=== PATIENT | female | born 1995 | race Caucasian/White ===

== ENCOUNTER 2016-05-04 13:55 | Emergency (ER) | payer OTHER ==
[2016-05-04 14:21] VITALS: BP 107/68; PULSE 96; TEMP 98; BMI 18.0
[2016-05-04 15:06] LABS: URINE APPEARANCE SLCLOUDY; URINE BILIRUBIN NEGATIVE (NEGATIVE); URINE BLOOD NEGATIVE (NEGATIVE); URINE COLOR LTYELLOW; URINE GLUCOSE (UA) NEGATIVE (NEGATIVE); URINE KETONE NEGATIVE (NEGATIVE); URINE NITRITE NEGATIVE (NEGATIVE); URINE PROTEIN NEGATIVE (NEGATIVE); URINE UROBILINOGEN NEGATIVE E.U./dl (0.2-1.0)
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
[2016-05-04 15:15] LABS: URINE LEUK ESTERASE TRACE (NEGATIVE)
[2016-05-04 15:21] LABS: URINE BACTERIA RARE /hpf (NONE SEEN); URINE MUCUS RARE; URINE RBC 1 /hpf (0-3); URINE WBC 3 /hpf (3-5)
== END 2016-05-04 15:32 | disposition home or self-care (01) ==
LOC: JERFT 13:55
DX: J06.9 Acute upper respiratory infection, unspecified (principal); F17.210 Nicotine dependence, cigarettes, uncomplicated
CPT/HCPCS: 81003; 81015; 84703; 87070; 87430; 99281-25

== ENCOUNTER 2016-09-21 10:24 | Emergency (ER) | payer OTHER ==
[2016-09-21 10:43] VITALS: BP 103/70; PULSE 116; TEMP 99.2; BMI 19.2
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
[2016-09-21 12:41] LABS: URINE APPEARANCE CLEAR; URINE BILIRUBIN NEGATIVE (NEGATIVE); URINE BLOOD 1+ (NEGATIVE); URINE COLOR LTYELLOW; URINE GLUCOSE (UA) NEGATIVE (NEGATIVE); URINE KETONE 1+ (NEGATIVE); URINE LEUK ESTERASE TRACE (NEGATIVE); URINE NITRITE NEGATIVE (NEGATIVE); URINE PROTEIN NEGATIVE (NEGATIVE); URINE UROBILINOGEN NEGATIVE mg/dL (0.2-1.0)
[2016-09-21 12:47] LABS: URINE MUCUS RARE; URINE RBC 1 /hpf (0-3); URINE WBC 8 /hpf (3-5)
[2016-09-21 12:53] LABS: URINE MARIJUANA THC POSITIVE ng/ml (CUTOFF=50)
== END 2016-09-21 12:53 | disposition home or self-care (01) ==
LOC: JERFT 10:24 → JER 10:24
DX: S39.012A Strain of muscle, fascia and tendon of lower back, initial encounter (principal); X58.XXXA Exposure to other specified factors, initial encounter; Y93.9 Activity, unspecified; Y92.9 Unspecified place or not applicable; F17.210 Nicotine dependence, cigarettes, uncomplicated
CPT/HCPCS: 36415; 80307; 81003; 81015; 84703; 87491; 87591; 99282-25

== ENCOUNTER 2017-03-05 08:31 | Emergency (ER) | payer OTHER ==
[2017-03-05 08:35] VITALS: TEMP 98.2; BMI 18.8
--- NOTE | 2017-03-05 08:53 | PDOC ---
History of Present Illness - General Chief Complaint: Urinary Problem Stated Complaint: POSSIBLE UTI Time Seen by Provider: 03/05/17 08:52 - History of Present Illness Initial Comments: 03/05/17 09:12 Ms. Grene is a 21 yo female w/ pmh of asthma and scoliosis who presents complaining of a 2 week history of dysuria. She reports that she has had UTI's in the past and that this feels identical. Additionally, Ms. Green reports she has had cough productive of yellow phlegm for the past week and pain with deep inspiration - her boyfriend is also sick with similar symptoms. Ms. 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 The patient denies chest pain, shortness of breath, headache and dizziness. Denies fever, chills, nausea, vomit, diarrhea and constipation. Denies frequency , urgency and hematuria. Allergies: NKDA Social: Daily marijuana use. Smokes 1 pack of cigarettes every 3 days. Past History - Past Medical History Allergies/Adverse Reactions: Allergies Allergy/AdvReac Type Severity Reaction Status Date / Time No Known Allergies Allergy Verified 03/05/17 08:35 Home Medications: Ambulatory Orders Cephalexin [Keflex] 500 mg PO BID #20 capsule 03/05/17 Asthma: Yes COPD: No Other medical history: scoliosis - Suicide/Smoking/Psychosocial Hx Smoking History: Current every day smoker Number of Cigarettes Smoked Daily: 10 Information on smoking cessation initiated: No 'Breaking Loose' booklet given: 09/21/16 Hx Alcohol Use: Yes (SOCIAL) Drug/Substance Use Hx: No Substance Use Type: None Review of Systems - Review of Systems Comments:: 03/05/17 09:24 GENERAL/CONSTITUTIONAL: No fever or chills. No weakness. HEAD, EYES, EARS, NOSE AND THROAT: No change in vision. No ear pain or discharge. No sore throat. CARDIOVASCULAR: No chest pain or shortness of breath RESPIRATORY: +Hacking cough productive of yellow sputum for 1 week. GASTROINTESTINAL: No nausea, vomiting, diarrhea or constipation. GENITOURINARY: +Dysuria for 2 weeks. No frequency. MUSCULOSKELETAL: +Back pain as described SKIN: No rash NEUROLOGIC: No headache, vertigo, loss of consciousness, or change in strength/ sensation. ENDOCRINE: No increased thirst. No abnormal weight change HEMATOLOGIC/LYMPHATIC: No anemia, easy bleeding, or history of blood clots. ALLERGIC/IMMUNOLOGIC: No hives or skin allergy. *Physical Exam - Vital Signs Last Vital Signs Temp Pulse Resp BP Pulse Ox 98.2 F 98 H 18 119/78 100 03/05/17 08:32 03/05/17 08:32 03/05/17 08:32 03/05/17 08:32 03/05/17 08:32 - Physical Exam Comments: 03/05/17 09:26 GENERAL: Awake, alert, and fully oriented, in no acute distress HEAD: No signs of trauma, normocephalic, atraumatic EYES: PERRLA, EOMI, sclera anicteric, conjunctiva clear ENT: Auricles normal inspection, hearing grossly normal, nares patent, oropharynx clear without exudates. Moist mucosa NECK: Normal ROM, supple, no lymphadenopathy, JVD, or masses LUNGS: +Wet cough appreciated although lungs sound clear. HEART: Regular rate and rhythm, normal S1 and S2, no murmurs, rubs or gallops, peripheral pulses normal and equal bilaterally. ABDOMEN: Soft, nontender, normoactive bowel sounds. No guarding, no rebound. No masses EXTREMITIES: +Point tenderness to R lumbar spine NEUROLOGICAL: Cranial nerves II through XII grossly intact. Normal speech, normal gait, no focal sensorimotor deficits SKIN: Warm, Dry, normal turgor, no rashes or lesions noted. ED Treatment Course - LABORATORY CBC & Chemistry Diagram: 03/05/17 10:15 03/05/17 10:15 Medical Decision Making - Medical Decision Making 03/05/17 11:34 Ms. Green is a 21 yo female w/ pmh of asthma and scoliosis who presents w/ symptoms concerning for UTI, back strain, and viral URI. Patient positive for UTI via UA, keflex given in ED and Rx sent. Patient reports generalized resolution of back pain after toradol - patient advised to get back brace for further lifting at work. CXR non-concerning, suspect viral illness only - advised patient to follow-up if continues and to quit smoking at least until symptoms resolve. Patient verbalized understanding and will comply with recommendations. Will also provide follow-up information for spine. *DC/Admit/Observation/Transfer Diagnosis at time of Disposition: UTI (urinary tract infection) Qualifiers: Urinary tract infection type: site unspecified Hematuria presence: with hematuria Qualified Code(s): N39.0 - Urinary tract infection, site not specified ; R31.9 - Hematuria, unspecified; R31.9 - Hematuria, unspecified - Discharge Dispostion Disposition: HOME - Prescriptions Prescriptions: Cephalexin [Keflex] 500 mg PO BID #20 capsule - Referrals Referrals: Clarice Clemons MD [Primary Care Provider] - Zach Cartagena MD [Staff Physician] - - Patient Instructions Printed Discharge Instructions: DI for Urinary Tract Infection (UTI) Additional Instructions: You were evaluated today in the emergency room for UTI, back strain, and cough. A prescription has been sent to your pharmacy for your UTI. Please take all medications even if you start to feel better. Follow-up with provided spine doctor for further back pain analysis and take over the counter medications for pain relief in the mean time as needed. Use a back brace for any lifting. Refrain from smoking as much as possible at least until cough resolves. Return to ER if any increase in pain, lasting cough, fever, altered mental status, or any other concerning symptoms. - Post Discharge Activity Forms/Work/School Notes: Back to Work
[2017-03-05] MEDS ORDERED: KETOROLAC TROMETHAMINE 15 MG/ML VIAL IVPUSH ONE (09:20)
--- NOTE | 2017-03-05 09:43 | PDOC ---
Attending Attestation - Resident Resident Name: Richard Stevenson - ED Attending Attestation I have performed the following: I have examined & evaluated the patient, The case was reviewed & discussed with the resident, I agree w/resident's findings & plan, Exceptions are as noted - HPI HPI: 03/05/17 09:36 21 F with h/o asthma and scoliosis presenting to ER with 3 days of dysuria. Pt states that she has had UTIs in the past (gets them every couple months), and this feels similar. She denies F/C. States that her urine was cloudy today. Denies flank pain. Pt also reports some nasal congestion and cough for the past week. Endorses chest pain associated with coughing. Pt denies SOB. Denies leg swelling. Denies recent travel/immobilization. No h/o DVT/PE. Not on OCPs. - Physicial Exam PE: 03/05/17 09:38 "GENERAL: Awake, alert, and fully oriented, in no acute distress HEAD: No signs of trauma EYES: PERRLA, EOMI, sclera anicteric, conjunctiva clear ENT: Auricles normal inspection, hearing grossly normal, nares patent, oropharynx clear without exudates. Moist mucosa NECK: Nontender, no stepoffs, Normal ROM, supple, no lymphadenopathy, JVD, or masses LUNGS: Breath sounds equal, clear to auscultation bilaterally. No wheezes, and no crackles HEART: Regular rate and rhythm, normal S1 and S2, no murmurs, rubs or gallops ABDOMEN: Soft, nontender, normoactive bowel sounds. No guarding, no rebound. No masses, No CVAT EXTREMITIES: Normal range of motion, no edema. No clubbing or cyanosis. No cords, erythema, or tenderness NEUROLOGICAL: Cranial nerves II through XII intact. 5/5 strength and sensation in all extremities, Normal speech, normal gait SKIN: Warm, Dry, normal turgor, no rashes or lesions noted. " - Medical Decision Making 03/05/17 09:38 21 F with dysuria and cough. Likely UTI. Cough likely viral URI but will r/o PNA with CXR. Pt's chest pain is likely cough-related. Pt with PERC score 0. - Labs, UA, UCx, UPT - CXR 03/05/17 11:00 UA consistent with UTI. Pt started on keflex. I discussed the physical exam findings, ancillary test results and final diagnoses with the patient. I answered all of the patient's questions. The patient was satisfied with the care received and felt comfortable with the discharge plan and treatment plan. The patient agrees to follow up with the primary care physician within 24-72 hours.
[2017-03-05] MEDS ORDERED: KETOROLAC TROMETHAMINE 15 MG/ML VIAL ONE (09:59)
[2017-03-05] MEDS ORDERED: SODIUM CHLORIDE 1,000 ML IV STA (10:06)
[2017-03-05 10:43] LABS: BASO % 0.4 % (0-2.0); HEMATOCRIT 42.2 % (32.4-45.2); LYMPH % 36.2 % (8-40); MCH 28.7 pg (25.7-33.7); MCHC 33.3 g/dl (32.0-36.0); MEAN CELL VOLUME 86.3 fl (80-96); MEAN PLT VOLUME 8.9 fl (7.5-11.1); MONO % 8.9 % (3.8-10.2); NEUT % 51.5 % (42.8-82.8); PLATELET COUNT 229 K/MM3 (134-434); RBC 4.89 M/mm3 (3.60-5.2); RDW 12.9 % (11.6-15.6); WHITE BLOOD COUNT 6.9 K/mm3 (4.0-10.0)
[2017-03-05 10:44] LABS: URINE APPEARANCE TURBID; URINE BILIRUBIN NEGATIVE (NEGATIVE); URINE BLOOD 1+ (NEGATIVE); URINE COLOR DKYELLOW; URINE GLUCOSE (UA) NEGATIVE (NEGATIVE); URINE KETONE NEGATIVE (NEGATIVE); URINE NITRITE NEGATIVE (NEGATIVE); URINE UROBILINOGEN NEGATIVE mg/dL (0.2-1.0)
[2017-03-05 10:51] LABS: URINE LEUK ESTERASE 3+ (NEGATIVE); URINE PROTEIN 1+ (NEGATIVE)
[2017-03-05 10:53] LABS: EPI CELLS RARE /HPF (FEW)
[2017-03-05 11:00] LABS: ALBUMIN 4.1 g/dl (3.4-5.0); ALK PHOS 80 U/L (45-117); ANION GAP 7 (8-16); BILIRUBIN,TOTAL 0.3 mg/dL (0.2-1.0); BLOOD UREA NITROGEN 9 mg/dL (7-18); CALCIUM 8.9 mg/dL (8.5-10.1); CHLORIDE 103 mmol/L (98-107); CO2 29 mmol/L (21-32); CREATININE 0.8 mg/dL (0.55-1.02); GLUCOSE,RANDOM 95 mg/dL (74-106); POTASSIUM 3.9 mmol/L (3.5-5.1); SGOT/AST 13 U/L (15-37); SGPT/ALT 11 U/L (12-78); SODIUM 139 mmol/L (136-145); TOT PROT 7.7 g/dl (6.4-8.2)
[2017-03-05] MEDS ORDERED: CEPHALEXIN MONOHYDRATE 500 MG CAPSULE (UD) PO ONE (11:27)
[2017-03-05 12:12] VITALS: BP 114/55; PULSE 61
== END 2017-03-05 12:12 | disposition home or self-care (01) ==
LOC: JER 08:31
PROC: 3E0333Z Introduction of Anti-inflammatory into Peripheral Vein, Percutaneous Approach (ICD-10-PCS; principal; 2017-03-05)
PROC: 3E0337Z Introduction of Electrolytic and Water Balance Substance into Peripheral Vein, Percutaneous Approach (ICD-10-PCS; 2017-03-05)
DX: N39.0 Urinary tract infection, site not specified (principal); N31.9 Neuromuscular dysfunction of bladder, unspecified
CPT/HCPCS: 36415; 71046-TC; 80053; 81003; 81015; 84703; 85025; 87086; 96361; 96374; 99283-25

== ENCOUNTER 2017-05-23 17:37 | Emergency (ER) | payer OTHER ==
[2017-05-23 17:59] VITALS: BP 112/57; PULSE 89; TEMP 98.1
--- NOTE | 2017-05-23 18:03 | PDOC ---
Rapid Medical Evaluation Time Seen by Provider: 05/23/17 17:57 Medical Evaluation: Allergies Allergy/AdvReac Type Severity Reaction Status Date / Time No Known Allergies Allergy Verified 05/23/17 17:56 05/23/17 17:57 Pt c/o: itchy rash to left neck without pain or improvment using neosporin. Pt denies eczema or skin d/o Pt on brief exam: erythemaotus patchy areas to neck and left upper chest Pt ordered for: none Pt to proceed to the ED Discharge Disposition - Diagnosis Rash - Referrals - Patient Instructions - Post Discharge Activity
--- NOTE | 2017-05-23 18:58 | PDOC ---
History of Present Illness - General Chief Complaint: Rash Stated Complaint: RASH Time Seen by Provider: 05/23/17 17:57 History Source: Patient - History of Present Illness Timing/Duration: reports: other Location: reports: extremities, other (neck), torso Past History - Past Medical History Allergies/Adverse Reactions: Allergies Allergy/AdvReac Type Severity Reaction Status Date / Time No Known Allergies Allergy Verified 05/23/17 17:56 Home Medications: Ambulatory Orders Loratadine [Claritin] 10 mg PO DAILY #10 tablet 05/23/17 Asthma: Yes COPD: No - Reproductive History (#): 0 Para: 0 - Suicide/Smoking/Psychosocial Hx Smoking History: Current every day smoker Have you smoked in the past 12 months: Yes Number of Cigarettes Smoked Daily: 7 Information on smoking cessation initiated: No 'Breaking Loose' booklet given: 09/21/16 Hx Alcohol Use: Yes (SOCIAL) Drug/Substance Use Hx: No Substance Use Type: None Review of Systems - Review of Systems Constitutional: No: Fever Respiratory: No: Stridor Integumentary: Yes: Pruritus, Rash *Physical Exam - Vital Signs Last Vital Signs Temp Pulse Resp BP Pulse Ox 98.1 F 89 16 112/57 99 05/23/17 17:56 05/23/17 17:56 05/23/17 17:56 05/23/17 17:56 05/23/17 17:56 - Physical Exam General Appearance: Yes: Appropriately Dressed. No: Apparent Distress HEENT: positive: Normal Voice Neck: positive: Supple Respiratory/Chest: positive: Lungs Clear, Normal Breath Sounds. negative: Respiratory Distress, Stridor Cardiovascular: positive: Regular Rate, S1, S2 Integumentary: positive: Rash (hives to neck, back and upper extremities) Neurologic: positive: Fully Oriented, Alert, Normal Mood/Affect Medical Decision Making - Medical Decision Making 05/23/17 18:55 21-year-old female, no significant history, and no food or drug allergies, here with pruritic rash. Patient complaining of rash that started to right side of neck 1and 1/2 weeks ago and has since spread to torso and upper extremities. Denies shortness of breath, tongue swelling or voice changes. Using calamine and Neosporin with no relief. No history of similar episode. No history of anaphylaxis. Denies any obvious inciting agents. Well-appearing and stable with what appears to be hives to neck, back and upper extremities. DC with antihistamine and derm follow-up *DC/Admit/Observation/Transfer Diagnosis at time of Disposition: Hives - Discharge Dispostion Disposition: HOME Condition at time of disposition: Good - Prescriptions Prescriptions: Loratadine [Claritin] 10 mg PO DAILY #10 tablet - Referrals Referrals: Clarice Clemons MD [Primary Care Provider] - Jessica Conklin MD [Staff Physician] - - Patient Instructions Printed Discharge Instructions: Hives Additional Instructions: It appears that you have hives which is usually an allergic rash. Take Claritin as needed for itching. Please follow-up with Dr. Conklin of dermatology at this point - Post Discharge Activity
== END 2017-05-23 18:59 | disposition home or self-care (01) ==
LOC: JERFT 17:37
DX: L50.0 Allergic urticaria (principal); F17.210 Nicotine dependence, cigarettes, uncomplicated
CPT/HCPCS: 99281-25

== ENCOUNTER 2017-06-25 18:01 | Emergency (ER) | payer OTHER | END 2017-06-25 19:37 | disposition home or self-care (01) | LOC: JERFT 18:01 | CPT/HCPCS: 81003; 81015; 84703; 87086; 99281-25 ==

== ENCOUNTER 2017-07-27 00:39 | Emergency (ER) | payer OTHER ==
[2017-07-27 01:51] VITALS: BP 129/67; PULSE 68; TEMP 98.1; BMI 19.7
--- NOTE | 2017-07-27 02:29 | PDOC ---
History of Present Illness - General Chief Complaint: Vaginal Sxs Stated Complaint: URINARY PROBLEM Time Seen by Provider: 07/27/17 02:16 History Source: Patient - History of Present Illness Initial Comments: 07/27/17 21-year-old female currently on MetroGel for bacterial vaginosis reports that she's been having vaginal itching and cottage- cheese like white vaginal discharge. Past History - Past Medical History Allergies/Adverse Reactions: Allergies Allergy/AdvReac Type Severity Reaction Status Date / Time No Known Allergies Allergy Verified 07/27/17 01:51 Home Medications: Ambulatory Orders Nitrofurantoin Monohyd/M-Cryst [Macrobid -] 100 mg PO BID #14 capsule 06/25/17 Fluconazole 150 mg PO ONCE #1 tablet 07/27/17 Saccharomyces Boulardii [Florastor] 250 mg PO BID #14 capsule 07/27/17 Asthma: Yes COPD: No DVT: No - Reproductive History Is Patient Now?: No (Pt states that her menses is late) (#): 0 Para: 0 - Immunization History Immunization Up to Date: Yes - Suicide/Smoking/Psychosocial Hx Smoking History: Current some day smoker Have you smoked in the past 12 months: Yes Number of Cigarettes Smoked Daily: 7 Information on smoking cessation initiated: No 'Breaking Loose' booklet given: 09/21/16 Hx Alcohol Use: No Drug/Substance Use Hx: No Substance Use Type: None *Physical Exam - Vital Signs Last Vital Signs Temp Pulse Resp BP Pulse Ox 98.1 F 68 18 129/67 99 07/27/17 01:49 07/27/17 01:49 07/27/17 01:49 07/27/17 01:49 07/27/17 01:49 - Physical Exam General Appearance: Yes: Appropriately Dressed Female Pelvic Exam: positive: normal external exam, cervical os closed, other ( copious white vaginal discharge) Gastrointestinal/Abdominal: positive: Normal Bowel Sounds Extremity: positive: Normal Capillary Refill, Normal Inspection, Normal Range of Motion Progress Note - Progress Note Progress Note: A: vaginal yeast infection P: fluconazole *DC/Admit/Observation/Transfer Diagnosis at time of Disposition: Yeast infection of the vagina - Discharge Dispostion Disposition: HOME Condition at time of disposition: Improved - Prescriptions Prescriptions: Fluconazole 150 mg PO ONCE #1 tablet Saccharomyces Boulardii [Florastor] 250 mg PO BID #14 capsule - Referrals Referrals: Shadia Rosales MD [Primary Care Provider] - - Patient Instructions Printed Discharge Instructions: DI for Vaginal Yeast Infection Additional Instructions: use the second dose in 72 hours. - Post Discharge Activity Forms/Work/School Notes: Back to Work
[2017-07-27 03:22] LABS: URINE APPEARANCE CLEAR; URINE BILIRUBIN NEGATIVE (<2.0 mg/dL); URINE COLOR YELLOW; URINE GLUCOSE (UA) NEGATIVE (NEGATIVE); URINE KETONE NEGATIVE (NEGATIVE); URINE LEUK ESTERASE NEGATIVE (NEGATIVE); URINE NITRITE NEGATIVE (NEGATIVE); URINE PROTEIN NEGATIVE (NEGATIVE)
[2017-07-27 03:47] LABS: HCG,QUALITATIVE URINE NEGATIVE
[2017-07-27] MEDS ORDERED: FLUCONAZOLE 50 MG TABLET PO ONE (03:54)
== END 2017-07-27 04:09 | disposition home or self-care (01) ==
LOC: JER 00:39
DX: B37.3 Candidiasis of vulva and vagina (principal)
CPT/HCPCS: 81003; 84703; 99281-25

== ENCOUNTER 2017-11-07 19:04 | Emergency (ER) | payer OTHER ==
[2017-11-07 19:48] VITALS: BP 114/62; PULSE 81; TEMP 98; BMI 19.7
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
== END 2017-11-07 20:37 | disposition home or self-care (01) ==
LOC: JERFT 19:04
DX: S39.012A Strain of muscle, fascia and tendon of lower back, initial encounter (principal); S60.211A Contusion of right wrist, initial encounter; S80.211A Abrasion, right knee, initial encounter; Y04.2XXA Assault by strike against or bumped into by another person, initial encounter; Y93.89 Activity, other specified; Y92.89 Other specified places as the place of occurrence of the external cause; Y99.8 Other external cause status; Y07.9 Unspecified perpetrator of maltreatment and neglect
CPT/HCPCS: 99281-25

== ENCOUNTER 2017-12-02 14:52 | Emergency (ER) | payer OTHER ==
[2017-12-02 14:59] VITALS: BP 117/70; PULSE 95; TEMP 99.1; BMI 18.8
[2017-12-02] MEDS ORDERED: KETOROLAC TROMETHAMINE 60 MG/2 ML VIAL IM ONE (15:14)
--- NOTE | 2017-12-02 15:18 | PDOC ---
History of Present Illness - General Chief Complaint: Toothache Stated Complaint: TOOTHACHE Time Seen by Provider: 12/02/17 15:09 - History of Present Illness Initial Comments: 12/02/17 15:14 22-year-old female without comorbidities presents for evaluation of postoperative pain after having 4 wisdom teeth extracted yesterday. She was given a prescription for 6 Tylenol 3 she's taken to without relief. She reports for to the ER for further evaluation and treatment. Past History - Past Medical History Allergies/Adverse Reactions: Allergies Allergy/AdvReac Type Severity Reaction Status Date / Time No Known Allergies Allergy Verified 12/02/17 14:54 Home Medications: Ambulatory Orders Ibuprofen [Motrin -] 600 mg PO TID #30 tablet 12/02/17 Asthma: Yes COPD: No DVT: No - Reproductive History (#): 0 Para: 0 - Immunization History Immunization Up to Date: Yes - Suicide/Smoking/Psychosocial Hx Smoking History: Never smoked Have you smoked in the past 12 months: No Number of Cigarettes Smoked Daily: 8 Information on smoking cessation initiated: No 'Breaking Loose' booklet given: 09/21/16 Hx Alcohol Use: No Drug/Substance Use Hx: No Substance Use Type: None Review of Systems - Review of Systems HEENTM: Yes: See HPI, Dental Problems *Physical Exam - Vital Signs Last Vital Signs Temp Pulse Resp BP Pulse Ox 99.1 F 95 H 18 117/70 100 12/02/17 14:56 12/02/17 14:56 12/02/17 14:56 12/02/17 14:56 12/02/17 14:56 - Physical Exam Comments: Oropharynx is clear. For was some teeth been extracted. There is no areas of focal fluctuance or purulence. No purulence is expressed. There is bilateral cheek swelling. Right is slightly greater than the left there is no cervical adenopathy. 12/02/17 15:15 Medical Decision Making - Medical Decision Making 22-year-old female with increased pain. She was only given a prescription for Tylenol 3 she's taken one pill every 6 hours she's taken 2 doses without relief. Her main complaint is increased pain. I will give her a shot of Toradol in the emergency room and given a prescription for by mouth Motrin at home. I have given her instructions to adjust the dose of Tylenol 3. I have advised her to take 2 tablets the next time she takes it and then one thereafter. 12/02/17 15:15 *DC/Admit/Observation/Transfer Diagnosis at time of Disposition: [place] teeth extracted - Discharge Dispostion Disposition: HOME Condition at time of disposition: Stable Decision to Admit order: No - Referrals Referrals: Tc Clark MD [Primary Care Provider] - - Patient Instructions Printed Discharge Instructions: Tooth Extraction, DI on Tooth Extraction Additional Instructions: Continue to ice the area as directed 20 minutes at a time 5-6 times a day. Morphew have the time. I given you prescription for prescription strength Motrin. Please take the medication on a full stomach as directed. Do not start to take the medication until 8 hours after her ER visit. He will given a shot of an anti-inflammatory in the emergency room. The Tylenol 3 can be taken 2 pills at one time. Please do that your next dose and then go back to one pill thereafter. The should help with your breakthrough pain. Return to the ER should her symptoms worsen or go unresolved in the meantime follow-up with your oral surgeon in one to 2 days for further evaluation and treatment options - Post Discharge Activity
[2017-12-02] MEDS ORDERED: KETOROLAC TROMETHAMINE 60 MG/2 ML VIAL ONE (15:23)
== END 2017-12-02 15:34 | disposition home or self-care (01) ==
LOC: JERFT 14:52
PROC: 3E0233Z Introduction of Anti-inflammatory into Muscle, Percutaneous Approach (ICD-10-PCS; principal; 2017-12-02)
DX: K08.109 Complete loss of teeth, unspecified cause, unspecified class (principal)
CPT/HCPCS: 96372; 99281-25

== ENCOUNTER 2018-03-16 10:38 | Emergency (ER) | payer OTHER ==
[2018-03-16 10:45] VITALS: BP 113/64; PULSE 103; TEMP 98.4; BMI 18.3
[2018-03-16] MEDS ORDERED: SODIUM CHLORIDE 1,000 ML IV STA (11:38)
[2018-03-16] MEDS ORDERED: ONDANSETRON 4 MG/2 ML VIAL IVPB ONE (11:38)
[2018-03-16] MEDS ORDERED: ONDANSETRON 4 MG/2 ML VIAL ONE (12:03)
[2018-03-16 12:09] LABS: BASO % 0.3 % (0-2.0); EOS % 0.9 % (0-4.5); HEMATOCRIT 40.7 % (32.4-45.2); LYMPH % 13.5 % (8-40); MCH 30.2 pg (25.7-33.7); MCHC 34.4 g/dl (32.0-36.0); MEAN CELL VOLUME 87.7 fl (80-96); MEAN PLT VOLUME 8.5 fl (7.5-11.1); MONO % 7.6 % (3.8-10.2); NEUT % 77.7 % (42.8-82.8); PLATELET COUNT 242 K/MM3 (134-434); RBC 4.64 M/mm3 (3.60-5.2); RDW 12.4 % (11.6-15.6); URINE APPEARANCE SLCLOUDY; URINE BILIRUBIN NEGATIVE (<2.0 mg/dL); URINE COLOR DKYELLOW; URINE GLUCOSE (UA) NEGATIVE (NEGATIVE); URINE KETONE 2+ (NEGATIVE); URINE LEUK ESTERASE 1+ (NEGATIVE); URINE NITRITE NEGATIVE (NEGATIVE); URINE PROTEIN 1+ (NEGATIVE); URINE UROBILINOGEN NEGATIVE mg/dL (0.2-1.0); WHITE BLOOD COUNT 9.7 K/mm3 (4.0-10.0)
[2018-03-16 12:10] LABS: EPI CELLS MODERATE /HPF (FEW); URINE BACTERIA RARE /hpf (NONE SEEN); URINE MUCUS MANY
--- NOTE | 2018-03-16 12:28 | PDOC ---
History of Present Illness - General Chief Complaint: Nausea/Vomiting Stated Complaint: FLU LIKE SYMPTOMS Time Seen by Provider: 03/16/18 11:18 - History of Present Illness Initial Comments: 03/16/18 12:26 The patient is a 22 year old female approximately seven weeks , , with a significant past medical history ovarian cysts, who presents to the emergency department with flu like symptoms, fatigue, body aches, and subjective fever since yesterday. Patient states she is unable to hold anything down including water secondary to nausea. She denies any abdominal pain. Patient notes she feels feverish but recorded a temperature of 98F last night. She also states she felt chills prior to ED arrival which has now resolved. Patient reports several episodes of vomiting, NBNB. She states she was seen by her doctor 2 weeks ago for sinus congestion where she was given allergy medication (cetirizine and fluticasone) without relief of symptoms. Patient also denies sick contacts and sore throat. She denies cough. The patient denies chest pain, shortness of breath, headache. The patient denies , diarrhea. The patient denies, frequency, urgency and hematuria, vaginal bleeding, vaginal discharge Allergies: NKDA Past History - Past Medical History Allergies/Adverse Reactions: Allergies Allergy/AdvReac Type Severity Reaction Status Date / Time No Known Allergies Allergy Verified 03/16/18 10:40 Home Medications: Ambulatory Orders Nitrofurantoin Monohyd/M-Cryst [Macrobid -] 100 mg PO BID #14 capsule 03/16/18 Ondansetron [Zofran Odt -] 4 mg SL TID #21 od.tablet 03/16/18 Prenat 115/Iron Fum/Folic/Dss [ 19 Tablet] 1 each PO DAILY 03/16/18 Asthma: Yes COPD: No CHF: No DVT: No - Reproductive History (#): 1 Para: 0 Spontaneous : 0 - Immunization History Immunization Up to Date: Yes - Suicide/Smoking/Psychosocial Hx Smoking History: Never smoked Have you smoked in the past 12 months: No Number of Cigarettes Smoked Daily: 8 'Breaking Loose' booklet given: 09/21/16 Hx Alcohol Use: No Drug/Substance Use Hx: No Substance Use Type: None Review of Systems - Review of Systems Comments:: 03/16/18 12:27 GENERAL/CONSTITUTIONAL: (+) subjective fevers and chills. fatigue, generalized weakness. HEAD, EYES, EARS, NOSE AND THROAT: (+) sinus congestion, No change in vision. No ear pain or discharge. No sore throat. CARDIOVASCULAR: No chest pain, no shortness of breath, no loss of consciousness RESPIRATORY: No cough, wheezing, or hemoptysis. GASTROINTESTINAL: (+) nausea, vomiting, constipation. No diarrhea GENITOURINARY: No dysuria, frequency, or change in urination. MUSCULOSKELETAL: (+) diffuse body aches. No joint or muscle swelling. No neck or back pain. SKIN: No rash NEUROLOGIC: No vertigo, no change in strength/sensation. ENDOCRINE: No increased thirst. No abnormal weight change. HEMATOLOGIC/LYMPHATIC: No anemia, easy bleeding, or history of blood clots. ALLERGIC/IMMUNOLOGIC: No hives or skin allergy. *Physical Exam - Vital Signs Last Vital Signs Temp Pulse Resp BP Pulse Ox 98.4 F 103 H 18 113/64 98 03/16/18 10:44 03/16/18 10:44 03/16/18 10:44 03/16/18 10:44 03/16/18 10:44 - Physical Exam Comments: 03/16/18 12:27 GENERAL: Awake, alert, and fully oriented, in no acute distress. HEAD: No signs of trauma EYES: PERRLA, EOMI, sclera anicteric, conjunctiva clear ENT: Auricles normal inspection, hearing grossly normal, nares patent, oropharynx clear without exudates. Moist mucosa NECK: Nontender, no stepoffs, Normal ROM, supple, no lymphadenopathy, JVD, or masses LUNGS: Breath sounds equal, clear to auscultation bilaterally. No wheezes, and no crackles HEART: Regular rate and rhythm, normal S1 and S2, no murmurs, rubs or gallops ABDOMEN: Soft, nontender, normoactive bowel sounds. No guarding, no rebound. No masses EXTREMITIES: Normal range of motion, no edema. No clubbing or cyanosis. No cords, erythema, or tenderness NEUROLOGICAL: Cranial nerves II through XII intact. 5/5 strength and sensation in all extremities, Normal speech, normal gait, normal cerebellar function SKIN: Warm, Dry, normal turgor, no rashes or lesions noted. Moderate Sedation - Procedure Monitoring Vital Signs: Procedure Monitoring Vital Signs Temperature 98.4 F 03/16/18 10:44 Pulse Rate 103 H 03/16/18 10:44 Respiratory Rate 18 03/16/18 10:44 Blood Pressure 113/64 03/16/18 10:44 O2 Sat by Pulse Oximetry (%) 98 03/16/18 10:44 ED Treatment Course - LABORATORY CBC & Chemistry Diagram: 03/16/18 11:47 03/16/18 11:47 - ADDITIONAL ORDERS Additional order review: Laboratory Results 03/16/18 11:47 Urine Color Dkyellow Urine Appearance Slcloudy Urine pH 5.0 D Ur Specific [place] 1.029 Urine Protein 1+ H Urine Glucose (UA) Negative Urine Ketones 2+ H Urine Blood Negative Urine Nitrite Negative Urine Bilirubin Negative Urine Urobilinogen Negative Ur Leukocyte Esterase 1+ H Urine WBC (Auto) 8 Urine RBC (Auto) 4 Ur Epithelial Cells Moderate Urine Bacteria Rare Urine Mucus Many 03/16/18 11:47 RBC 4.64 MCV 87.7 MCHC 34.4 RDW 12.4 MPV 8.5 Neutrophils % 77.7 D Lymphocytes % 13.5 D Monocytes % 7.6 Eosinophils % 0.9 Basophils % 0.3 - Medications Given in the ED: ED Medications Discontinued Medications Generic Name Dose Route Start Last Admin Trade Name Freq PRN Reason Stop Dose Admin Ondansetron HCl 4 mg 03/16/18 11:38 03/16/18 12:08 Zofran Injection IVPB 03/16/18 11:39 4 mg ONCE ONE Administration Medical Decision Making - Medical Decision Making 03/16/18 12:27 22 F with URI like symptoms. Suspect viral syndrome. Will r/o influenza given . Pt also complaining of N+V, likely 2/2 viral illness vs . No abdominal pain or tenderness on exam. - Labs, UA - Flu swab - IVF, zofran 03/16/18 13:10 Labs wnl UA with + WBCs, +LE Will tx with macrobid Flu negative Pt reassessed - feels much better with fluids and zofran Able to tolerate PO Pt is well appearing, with normal vitals. Clinically stable for DC at this time. I discussed the physical exam findings, ancillary test results and final diagnoses with the patient. I answered all of the patient's questions. The patient was satisfied with the care received and felt comfortable with the discharge plan and treatment plan. The patient agrees to follow up with the primary care physician within 24-72 hours. *DC/Admit/Observation/Transfer Diagnosis at time of Disposition: Nausea & vomiting, URI (upper respiratory infection), UTI (urinary tract infection) - Discharge Dispostion Disposition: HOME - Prescriptions Prescriptions: Nitrofurantoin Monohyd/M-Cryst [Macrobid -] 100 mg PO BID #14 capsule Ondansetron [Zofran Odt -] 4 mg SL TID #21 od.tablet - Referrals Referrals: Albina Cortez [Primary Care Provider] - - Patient Instructions Printed Discharge Instructions: DI for Urinary Tract Infection (UTI), DI for Hyperemesis Gravidarum Additional Instructions: You have a urinary tract infection. Take the antibiotics as prescribed to treat it. Take the ondansetron as needed for nausea and vomiting. If you experience abdominal pain, severe nausea or vomiting, fevers, or any other concerning symptoms, return to the ER immediately. Otherwise, follow up with your OB within 1 week for a check up. - Post Discharge Activity - Attestations Physician Attestion: 03/16/18 12:48 I, Dr. Kaz Roca MD, attest that this document has been prepared under my direction and personally reviewed by me in its entirety. I further attest, that it accurately reflects all work, treatment, procedures and medical decision -making performed by me.
[2018-03-16 12:51] LABS: ALBUMIN 4.1 g/dl (3.4-5.0); ALK PHOS 60 U/L (45-117); ANION GAP 7 MMOL/L (8-16); BILIRUBIN,TOTAL 0.5 mg/dL (0.2-1); BLOOD UREA NITROGEN 10 mg/dL (7-18); CALCIUM 8.9 mg/dL (8.5-10.1); CHLORIDE 102 mmol/L (98-107); CO2 26 mmol/L (21-32); CREATININE 0.5 mg/dL (0.55-1.3); GLUCOSE,RANDOM 80 mg/dL (74-106); POTASSIUM 3.9 mmol/L (3.5-5.1); SGOT/AST 15 U/L (15-37); SGPT/ALT 9 U/L (13-61); SODIUM 134 mmol/L (136-145); TOT PROT 7.1 g/dl (6.4-8.2)
== END 2018-03-16 13:22 | disposition home or self-care (01) ==
LOC: JER 10:38
PROC: 3E0337Z Introduction of Electrolytic and Water Balance Substance into Peripheral Vein, Percutaneous Approach (ICD-10-PCS; principal; 2018-03-16)
PROC: 3E033GC Introduction of Other Therapeutic Substance into Peripheral Vein, Percutaneous Approach (ICD-10-PCS; 2018-03-16)
DX: N39.0 Urinary tract infection, site not specified (principal); J06.9 Acute upper respiratory infection, unspecified; R11.2 Nausea with vomiting, unspecified
CPT/HCPCS: 36415; 80053; 81003; 81015; 85025; 87086; 87804; 96361; 96374; 99283-25; J7030

== ENCOUNTER 2018-08-11 19:34 | Emergency (ER) | payer OTHER | END 2018-08-11 20:42 | disposition home or self-care (01) | LOC: JER 19:34 → JERFT 20:42 ==

== ENCOUNTER 2019-01-22 22:56 | Emergency (ER) | payer OTHER ==
[2019-01-22 23:11] VITALS: BP 95/53; PULSE 75; TEMP 98.2; BMI 18.8
--- NOTE | 2019-01-23 03:08 | PDOC ---
Attending Attestation - Resident Resident Name: Alexsandra Mendez - ED Attending Attestation I have performed the following: I have examined & evaluated the patient, The case was reviewed & discussed with the resident, I agree w/resident's findings & plan
--- NOTE | 2019-01-23 03:14 | PDOC ---
History of Present Illness - General Chief Complaint: Pain Stated Complaint: 9 WKS /CRAMPS Time Seen by Provider: 01/23/19 03:05 - History of Present Illness Initial Comments: Not present in vertical area or room 5 01/23/19 03:14 Not present in vertical area per Nurse Frances. CARDOSO 01/23/19 03:37 Past History - Past Medical History Allergies/Adverse Reactions: Allergies Allergy/AdvReac Type Severity Reaction Status Date / Time No Known Allergies Allergy Verified 08/11/18 20:29 Home Medications: Ambulatory Orders NK [No Known Home Medication] 08/11/18 Asthma: Yes COPD: No CHF: No DVT: No - Reproductive History (#): 1 Para: 0 Spontaneous : 0 - Immunization History Immunization Up to Date: Yes - Psycho Social/Smoking Cessation Hx Smoking History: Current every day smoker Have you smoked in the past 12 months: No Number of Cigarettes Smoked Daily: 3 Information on smoking cessation initiated: Yes 'Breaking Loose' booklet given: 09/21/16 Hx Alcohol Use: No Drug/Substance Use Hx: No Substance Use Type: None *Physical Exam - Vital Signs Last Vital Signs Temp Pulse Resp BP Pulse Ox 98.2 F 75 20 95/53 L 100 01/22/19 23:07 01/22/19 23:07 01/22/19 23:07 01/22/19 23:07 01/22/19 23:07 Discharge - Discharge Information Problems reviewed: Yes Clinical Impression/Diagnosis: Patient left before evaluation by physician Condition: Unchanged/Unknown Disposition: LEFT BEFORE CARISSA KEENAN - Follow up/Referral Referrals: Shadia Rosales MD [Primary Care Provider] - - Patient Discharge Instructions - Post Discharge Activity
== END 2019-01-23 03:05 | disposition left against medical advice (07) ==
LOC: JER 22:56
DX: Z53.21 Procedure and treatment not carried out due to patient leaving prior to being seen by health care provider (principal)
CPT/HCPCS: 99281-25

== ENCOUNTER 2019-03-16 08:34 | Emergency (ER) | payer OTHER ==
[2019-03-16 08:45] VITALS: BP 124/62; PULSE 90; TEMP 98.1; BMI 19.5
[2019-03-16] MEDS ORDERED: IPRATROPIUM BR 0.02% 0.5 MG/2.5 ML VIAL.NEB. NEB ONE ×2 (09:18→09:27)
[2019-03-16] MEDS ORDERED: SODIUM CHLORIDE FOR INHALATION 3 ML VIAL.NEB IH ONE (09:19)
--- NOTE | 2019-03-16 09:36 | PDOC ---
History of Present Illness - General Chief Complaint: Respiratory Stated Complaint: 17 W PREG/ANXIETY/DIFF BREATHING Time Seen by Provider: 03/16/19 08:59 History Source: Patient Exam Limitations: Clinical Condition - History of Present Illness Initial Comments: 03/16/19 09:32 Patient with past medical history of asthma presented with complaint of sudden onset of chest tightness upon wake this morning which she started feeling palpitations with patient and she put herself into anxiety attack when she started having chest tightness. Patient reported has been having 5-day history of URI symptoms with nasal congestion, runny nose and intermittent cough and was seen seen by [facility] few days ago and flu test done was negative. Patient has not been taking anything for URI symptoms. Patient reports she has not had any asthma attack in many years. Patient never intubated for asthma. Patient reported palpitation and shortness of breath is improved but now only feels some mild chest tightness. Denies numbness or tingling sensation, dizziness, chest pain now, nausea, vomiting, fever or chills. Denies any other symptoms Is this a multiple visit Asthma Patient?: No Timing/Duration: 4-6 hours Past History - Past Medical History Allergies/Adverse Reactions: Allergies Allergy/AdvReac Type Severity Reaction Status Date / Time No Known Allergies Allergy Verified 03/16/19 08:41 Home Medications: Ambulatory Orders Albuterol Sulfate Inhaler - [Ventolin Hfa Inhaler -] 2 inh PO Q6H PRN #1 inh Ipratropium Ledbetter 2 spray NS BID PRN #1 spray 03/16/19 Asthma: Yes COPD: No CHF: No DVT: No - Reproductive History (#): 1 Para: 0 Spontaneous : 0 - Immunization History Immunization Up to Date: Yes - Psycho Social/Smoking Cessation Hx Smoking History: Current every day smoker Have you smoked in the past 12 months: No Number of Cigarettes Smoked Daily: 20 Information on smoking cessation initiated: No 'Breaking Loose' booklet given: 09/21/16 Hx Alcohol Use: No Drug/Substance Use Hx: No Substance Use Type: None Review of Systems - Review of Systems Able to Perform ROS?: Yes Is the patient limited Maltese proficient: No Constitutional: No: Chills, Fever, Malaise HEENTM: Yes: Symptoms Reported, See HPI, Nose Congestion. No: Eye Pain, Blurred Vision, Tearing, Recent change in vision, Double Vision, Cataracts, Ear Pain, Ocular Prothesis, Ear Discharge, Nose Pain, Tinnitus, Nose Bleeding, Hearing Loss, Throat Pain, Throat Swelling, Mouth Pain, Dental Problems, Difficulty Swallowing, Mouth Swelling, Other Respiratory: Yes: Symptoms reported, See HPI, Shortness of Breath, SOB at Rest. No: Cough, Orthopnea, SOB with Exertion, Stridor, Wheezing, Productive cough, Hemoptysis, Other Cardiac (ROS): Yes: Symptoms Reported, See HPI, Chest Tightness. No: Chest Pain , Edema, Irregular Heart Rate, Lightheadedness, Palpitations, Syncope, Other ABD/GI: No: Symptoms Reported, See HPI, Nausea, Vomiting Musculoskeletal: No: Symptoms Reported Integumentary: No: Symptoms Reported Neurological: No: Symptoms reported, Headache, Numbness, Tingling, Weakness, Dizziness All Other Systems: Reviewed and Negative *Physical Exam - Vital Signs Last Vital Signs Temp Pulse Resp BP Pulse Ox 98.1 F 90 18 124/62 100 03/16/19 08:41 03/16/19 08:41 03/16/19 08:41 03/16/19 08:41 03/16/19 08:41 - Physical Exam 03/16/19 09:36 GENERAL: Well developed, well nourished. Awake and alert. No acute distress. HEENT: Normocephalic, atraumatic. PERRLA, EOMI. No conjunctival pallor. Sclera are non-icteric. Moist mucous membranes. Oropharynx is clear. NECK: Supple. Full ROM. CARDIOVASCULAR: Regular rate and rhythm. No murmurs, rubs, or gallops. Distal pulses are 2+ and symmetric. PULMONARY: No evidence of respiratory distress. Lungs clear to auscultation bilaterally. No wheezing, rales or rhonchi. ABDOMINAL: 17 weeks gravid abdomen. Soft. Non-tender. No rebound or guarding. No organomegaly. Normoactive bowel sounds. MUSCULOSKELETAL Normal range of motion at all joints. EXTREMITIES: No cyanosis. No clubbing. No edema. No calf tenderness. SKIN: Warm and dry. Normal capillary refill. No rashes. No jaundice. NEUROLOGICAL: Alert, awake, appropriate. Gait is normal without ataxia. PSYCHIATRIC: Cooperative. Good eye contact. Appropriate mood General Appearance: Yes: Nourished, Appropriately Dressed. No: Apparent Distress Medical Decision Making - Medical Decision Making 03/16/19 09:34 Patient with past medical history of asthma presented with complaint of sudden onset of chest tightness upon wake this morning which she started feeling palpitations with patient and she put herself into anxiety attack when she started having chest tightness. Patient reported has been having 5-day history of URI symptoms with nasal congestion, runny nose and intermittent cough and was seen seen by [facility] few days ago and flu test done was negative. Patient has not been taking anything for URI symptoms. Patient reports she has not had any asthma attack in many years. Patient never intubated for asthma. Patient reported palpitation and shortness of breath is improved but now only feels some mild chest tightness. Denies numbness or tingling sensation, dizziness, chest pain now, nausea, vomiting, fever or chills. Denies any other symptoms Clinical exam unremarkable with lungs clear to auscultation with patient in no acute respiratory distress. Normal cardio exam. Patient reported he has been have intermittent lower abdominal cramping for few days. Denies vaginal bleeding. Patient symptoms likely bronchospasm from URI causing anxiety. Atrovent inhaler and normal saline inhalation ordered for bronchospasm. EKG ordered to rule out acute cardiac abnormality. Will do abdominal ultrasound to evaluate 03/16/19 10:11 Patient reported improvement of symptoms after nebulizer treatment saline inhalation. Reported no more chest tightness. Bedside ultrasound done which shows IUP of 16 weeks and 5 days with positive heart rate of 135 bpm. Baby with positive movement on bedside ultrasound. Patient will be observed for another 20 minutes and discharged home if no new symptoms with Ventolin inhaler as needed for bronchospasm with PCP follow-up 03/16/19 10:51 Patient still asymptomatic now and stable for discharge on Ventolin PRN for bronchospasm with strict follow-up Discharge - Discharge Information Problems reviewed: Yes Clinical Impression/Diagnosis: Bronchospasm, acute, URI, acute Asthma Qualifiers: Asthma severity: mild Asthma persistence: intermittent Asthma complication type : with acute exacerbation Qualified Code(s): J45.21 - Mild intermittent asthma with (acute) exacerbation Condition: Stable Disposition: HOME - Admission No - Additional Discharge Information Prescriptions: Albuterol Sulfate Inhaler - [Ventolin Hfa Inhaler -] 2 inh PO Q6H PRN #1 inh PRN Reason: chest tightness Ipratropium Ledbetter 2 spray NS BID PRN #1 spray PRN Reason: nasal congestion - Follow up/Referral Referrals: Shadia Rosales MD [Primary Care Provider] - - Patient Discharge Instructions Patient Printed Discharge Instructions: DI for Asthma -- Adult Additional Instructions: Your symptoms likely caused by chest tightness from asthma exacerbation from the change in weather. Use prescribed inhaler as needed for chest tightness. Come back to the emergency room if worsening shortness of breath, chest pain, difficulty breathing - Post Discharge Activity
--- NOTE | 2019-03-16 13:13 | EKG ---
Test Reason : Blood Pressure : / mmHG Vent. Rate : 070 BPM Atrial Rate : 070 BPM P-R Int : 138 ms QRS Dur : 084 ms QT Int : 386 ms P-R-T Axes : 019 051 047 degrees QTc Int : 416 ms NORMAL SINUS RHYTHM WITH SINUS ARRHYTHMIA NORMAL ECG NO PREVIOUS ECGS AVAILABLE Confirmed by TI KEITA MD ([id number]) on 03/16/2019 1:13:39 PM Referred By: Confirmed By:TI KEITA MD
== END 2019-03-16 11:15 | disposition home or self-care (01) ==
LOC: JER 08:34
PROC: 3E0F7GC Introduction of Other Therapeutic Substance into Respiratory Tract, Via Natural or Artificial Opening (ICD-10-PCS; principal; 2019-03-16)
PROC: 3E0F7GC Introduction of Other Therapeutic Substance into Respiratory Tract, Via Natural or Artificial Opening (ICD-10-PCS; 2019-03-16)
DX: O26.892 Other specified pregnancy related conditions, second trimester (principal); O99.512 Diseases of the respiratory system complicating pregnancy, second trimester; J45.21 Mild intermittent asthma with (acute) exacerbation; J06.9 Acute upper respiratory infection, unspecified; Z3A.16 16 weeks gestation of pregnancy
CPT/HCPCS: 93005; 93010; 94640; 99282-25

== ENCOUNTER 2019-05-05 16:08 | Emergency (ER) | payer OTHER ==
[2019-05-05 16:22] VITALS: BMI 45.3
[2019-05-05 17:20] VITALS: BP 106/66; PULSE 85; TEMP 98.2
[2019-05-05 17:53] LABS: COCAINE, UR NEGATIVE ng/ml (CUTOFF=300); METHADONE, UR NEGATIVE ng/ml (CUTOFF=300); OPIATES, URI NEGATIVE ng/ml (CUTOFF=300); PHENCYCLIDINE,URINE NEGATIVE ng/ml (CUTOFF=25); URINE AMPHETAMINES NEGATIVE ng/ml (CUTOFF=500); URINE BARBITURATES NEGATIVE ng/ml (CUTOFF=200); URINE BENZODIAZEPINES NEGATIVE ng/ml (CUTOFF=200)
== END 2019-05-05 19:51 | disposition home or self-care (01) ==
LOC: JER 16:08
DX: Z04.3 Encounter for examination and observation following other accident (principal)
CPT/HCPCS: 76801-TC; 80307; 99283-25

== ENCOUNTER 2020-06-13 16:53 | Emergency (ER) | payer OTHER ==
[2020-06-13 17:02] VITALS: TEMP 98.6; BMI 19.7
[2020-06-13 18:05] LABS: EPI CELLS >36 /uL (0-25.1); HCG,QUALITATIVE URINE Negative; HYALINE CASTS 4 /uL (0-3.1); PH,URINE 5.5 (5.0-8.0); URINE APPEARANCE CLEAR; URINE BACTERIA 528 /uL (0-1359); URINE BILIRUBIN NEGATIVE (NEGATIVE); URINE COLOR DK YELLOW; URINE GLUCOSE (UA) NEGATIVE (NEGATIVE); URINE KETONE 2+ (NEGATIVE); URINE LEUK ESTERASE TRACE (NEGATIVE); URINE NITRITE NEGATIVE (NEGATIVE); URINE PROTEIN 2+ (NEGATIVE); URINE RBC 9 /uL (0-23.9); URINE WBC 14 /uL (0-25.8)
[2020-06-13 18:08] VITALS: BP 109/72; PULSE 76
== END 2020-06-13 18:08 | disposition home or self-care (01) ==
LOC: JERFT 16:53
DX: B37.3 Candidiasis of vulva and vagina (principal); S02.2XXA Fracture of nasal bones, initial encounter for closed fracture
CPT/HCPCS: 36415; 70160-TC-FY; 81003; 84703; 87086; 87491; 87591; 99284-25

== ENCOUNTER 2020-11-26 12:59 | Emergency (ER) | payer OTHER ==
[2020-11-26 13:19] VITALS: BP 101/59; PULSE 82; TEMP 97.9; BMI 18.5
[2020-11-26] MEDS ORDERED: ACETAMINOPHEN 325 MG TABLET (FP) PO ONE (13:55)
[2020-11-26] MEDS ORDERED: ACETAMINOPHEN 325 MG TABLET (FP) ONE (13:56)
[2020-11-26] MEDS ORDERED: METHOCARBAMOL 500 MG TABLET PO ONE (13:56)
[2020-11-26] MEDS ORDERED: METHOCARBAMOL 500 MG TABLET ONE (13:57)
== END 2020-11-26 15:17 | disposition home or self-care (01) ==
LOC: JER 12:59 → JERFT 12:59
DX: S13.4XXA Sprain of ligaments of cervical spine, initial encounter (principal); S39.012A Strain of muscle, fascia and tendon of lower back, initial encounter; V43.52XA Car driver injured in collision with other type car in traffic accident, initial encounter
CPT/HCPCS: 72050-TC-FY; 72100-TC-FY; 99284-25

== ENCOUNTER 2022-05-01 22:57 | Emergency (ER) | payer OTHER ==
[2022-05-01 23:03] VITALS: BP 109/67; PULSE 89; RESP 20; TEMP 99.4; BMI 19.7
[2022-05-02] MEDS ORDERED: IBUPROFEN 400 MG TABLET (FP) PO ONE ×2 (00:18→00:20)
== END 2022-05-02 01:10 | disposition home or self-care (01) ==
LOC: JER 22:57
DX: M26.602 Left temporomandibular joint disorder, unspecified (principal); W50.0XXA Accidental hit or strike by another person, initial encounter
CPT/HCPCS: 99282-25

== ENCOUNTER 2022-06-03 19:22 | Emergency (ER) | payer OTHER ==
[2022-06-03 19:27] VITALS: BP 100/71; PULSE 79; RESP 17; TEMP 98; BMI 18.8
[2022-06-03] MEDS ORDERED: ACETAMINOPHEN 325 MG TABLET (FP) PO ONE (21:36)
== END 2022-06-03 23:02 | disposition home or self-care (01) ==
LOC: JERFT 19:22
DX: S09.93XA Unspecified injury of face, initial encounter (principal); Y04.8XXA Assault by other bodily force, initial encounter
CPT/HCPCS: 70450-TC; 70486-TC; 72125-TC; 99284-25

== ENCOUNTER 2022-06-15 14:33 | Emergency (ER) | payer OTHER ==
[2022-06-15 14:51] VITALS: BP 106/61; PULSE 94; RESP 19; TEMP 98.3; BMI 18.8
[2022-06-15 16:57] LABS: SYPHILIS W/ RPR CONF NON-REACTIVE (NONREACTIVE)
[2022-06-15 17:27] LABS: HIV INTERPRETATION NEGATIVE (NEGATIVE)
== END 2022-06-15 16:24 | disposition home or self-care (01) ==
LOC: JERFT 14:33
DX: J34.89 Other specified disorders of nose and nasal sinuses (principal); J02.9 Acute pharyngitis, unspecified; Z11.3 Encounter for screening for infections with a predominantly sexual mode of transmission
CPT/HCPCS: 36415; 86780; 87389; 87491; 87591; 87651; 99283-25

== ENCOUNTER 2022-06-17 18:15 | Emergency (ER) | payer OTHER ==
[2022-06-17 18:26] VITALS: BP 110/56; PULSE 98; RESP 18; TEMP 98; BMI 18.8
[2022-06-17] MEDS ORDERED: DEXAMETHASONE SOD PHOSPHATE 10 MG/1 ML VIAL IM ONE (19:41)
[2022-06-17] MEDS ORDERED: DEXAMETHASONE SOD PHOSPHATE 10 MG/1 ML VIAL IVPUSH ONE (20:02)
[2022-06-17] MEDS ORDERED: DEXAMETHASONE SOD PHOSPHATE 10 MG/1 ML VIAL ONE (20:02)
[2022-06-17 20:03] LABS: BASO % 0.8 % (0-2.0); EOS % 9.7 % (0-4.5); HEMATOCRIT 37.5 % (32.4-45.2); HEMOGLOBIN 12.9 GM/dL (10.7-15.3); LYMPH % 34.4 % (8-40); MCH 29.9 pg (25.7-33.7); MCHC 34.3 g/dl (32.0-36.0); MEAN CELL VOLUME 87.1 fl (80-96); MEAN PLT VOLUME 9.7 fl (7.5-11.1); MONO % 9.3 % (3.8-10.2); NEUT % 45.8 % (42.8-82.8); PLATELET COUNT 248 10^3/uL (134-434); WHITE BLOOD COUNT 6.8 K/mm3 (4.0-10.0)
[2022-06-17 20:10] LABS: INR 1.02 (0.83-1.09); PROTHROMBIN TIME (PATIENT) 11.8 SEC (9.7-13.0)
[2022-06-17 20:12] LABS: ACTIVATED PTT 28.4 SECONDS (25.2-36.5); BLOOD UREA NITROGEN 14.2 mg/dL (7-18)
[2022-06-17 20:15] LABS: CREATININE 0.6 mg/dL (0.55-1.3)
[2022-06-17 20:16] LABS: BILIRUBIN,TOTAL 0.1 mg/dL (0.2-1); TOT PROT 7.4 g/dl (6.4-8.2)
[2022-06-17] MEDS ORDERED: cefTRIAXone SODIUM 1 GM VIAL ONE (22:45)
[2022-06-17] MEDS ORDERED: LIDOCAINE HCL/PF 1% SDV 5ML VIAL ONE (22:50)
[2022-06-17] MEDS ORDERED: DOXYCYCLINE HYCLATE 100 MG CAPSULE PO ONE ×2 (23:03→23:13)
[2022-06-17] MEDS ORDERED: valACYclovir HCL 500 MG TABLET (FP) PO ONE (23:03)
[2022-06-17] MEDS ORDERED: valACYclovir HCL 500 MG TABLET (FP) ONE (23:12)
== END 2022-06-17 23:24 | disposition home or self-care (01) ==
LOC: JERFT 18:15 → JER 18:15
PROC: 3E02329 Introduction of Other Anti-infective into Muscle, Percutaneous Approach (ICD-10-PCS; principal; 2022-06-17)
PROC: 3E033GC Introduction of Other Therapeutic Substance into Peripheral Vein, Percutaneous Approach (ICD-10-PCS; 2022-06-17)
DX: R59.9 Enlarged lymph nodes, unspecified (principal); L01.00 Impetigo, unspecified; J02.9 Acute pharyngitis, unspecified; Z20.822 Contact with and (suspected) exposure to COVID-19
CPT/HCPCS: 0241U-QW; 36415; 70491-TC; 71045-TC-FY; 80053; 84703; 85025; 85610; 85730; 86850; 86900; 86901; 87040; 87070; 87651; 93005; 93010; 99285-25; J1100; Q9967

== ENCOUNTER 2023-07-26 21:11 | Emergency (ER) | payer OTHER ==
[2023-07-26 21:22] VITALS: BP 105/63; PULSE 69; RESP 20; TEMP 98.5; BMI 18.8
[2023-07-26] MEDS: IBUPROFEN 600 MG TABLET (FP) PO ONE (23:10)
[2023-07-26] MEDS ORDERED: IBUPROFEN 600 MG TABLET (FP) PO ONE (23:10)
== END 2023-07-26 23:39 | disposition home or self-care (01) ==
LOC: JERFT 21:11
DX: R59.0 Localized enlarged lymph nodes (principal); J06.9 Acute upper respiratory infection, unspecified
CPT/HCPCS: 87651; 99283-25

== ENCOUNTER 2024-02-17 12:51 | Emergency (ER) | payer OTHER ==
[2024-02-17 13:05] VITALS: TEMP 98.5; BMI 17.6
[2024-02-17] MEDS ORDERED: diazePAM 5 MG TABLET ONE (13:56)
[2024-02-17] MEDS ORDERED: ACETAMINOPHEN INJECTION 100 ML ONE (13:56)
[2024-02-17] MEDS: diazePAM 5 MG TABLET PO ONE (14:19)
[2024-02-17] MEDS: ACETAMINOPHEN 1000 MG/100 ML BAG IVPB ONE (14:19)
[2024-02-17 14:30] LABS: BASO % 0.3 % (0-2.0); EOS % 0.7 % (0-4.5); HEMATOCRIT 42.1 % (32.4-45.2); HEMOGLOBIN 14.1 GM/dL (10.7-15.3); LYMPH % 23.1 % (8-40); MCH 30.5 pg (25.7-33.7); MCHC 33.5 g/dl (32.0-36.0); MEAN CELL VOLUME 91.1 fl (80-96); MEAN PLT VOLUME 8.7 fl (7.5-11.1); MONO % 9.2 % (3.8-10.2); NEUT % 66.7 % (42.8-82.8); PLATELET COUNT 274 10^3/uL (134-434); RBC 4.62 M/mm3 (3.60-5.2); RDW 13.4 % (11.6-15.6)
[2024-02-17 14:35] LABS: INR 1.05 (0.83-1.09); PROTHROMBIN TIME (PATIENT) 11.8 SEC (9.7-13.0)
[2024-02-17 14:39] LABS: EPI CELLS >36 /uL (0-25.1); HYALINE CASTS 2 /uL (0-3.1); PH,URINE 6.5 (5.0-8.0); URINE APPEARANCE CLOUDY; URINE BACTERIA 1469 /uL (0-1359); URINE BILIRUBIN NEGATIVE (NEGATIVE); URINE COLOR YELLOW; URINE GLUCOSE (UA) NEGATIVE (NEGATIVE); URINE KETONE TRACE (NEGATIVE); URINE LEUK ESTERASE NEGATIVE (NEGATIVE); URINE NITRITE NEGATIVE (NEGATIVE); URINE PROTEIN 1+ (NEGATIVE); URINE RBC 15 /uL (0-23.9); URINE UROBILINOGEN 0.2 mg/dL (0.2-1.0); URINE WBC 41 /uL (0-25.8)
[2024-02-17 14:48] LABS: POTASSIUM 3.8 mmol/L (3.5-5.1)
[2024-02-17 14:49] LABS: CALCIUM 9.3 mg/dL (8.5-10.1)
[2024-02-17 14:51] LABS: BLOOD UREA NITROGEN 9.1 mg/dL (7-18)
[2024-02-17 14:53] LABS: CREATININE 0.6 mg/dL (0.55-1.3)
[2024-02-17] MEDS ORDERED: KETOROLAC TROMETHAMINE 30 MG/1 ML VIAL ONE (15:28)
[2024-02-17] MEDS: KETOROLAC TROMETHAMINE 30 MG/1 ML VIAL IVPUSH ONE (15:36)
[2024-02-17 16:12] LABS: HIV INTERPRETATION NEGATIVE (NEGATIVE)
[2024-02-17 18:27] VITALS: BP 101/62; PULSE 60; RESP 15
== END 2024-02-17 18:45 | disposition home or self-care (01) ==
LOC: JER 12:51
PROC: 3E033NZ Introduction of Analgesics, Hypnotics, Sedatives into Peripheral Vein, Percutaneous Approach (ICD-10-PCS; principal; 2024-02-17)
PROC: 3E0333Z Introduction of Anti-inflammatory into Peripheral Vein, Percutaneous Approach (ICD-10-PCS; 2024-02-17)
DX: S00.83XA Contusion of other part of head, initial encounter (principal); S50.11XA Contusion of right forearm, initial encounter; R07.89 Other chest pain; R10.12 Left upper quadrant pain; M25.512 Pain in left shoulder; M54.6 Pain in thoracic spine; Y04.8XXA Assault by other bodily force, initial encounter
CPT/HCPCS: 36415; 70450-TC; 70486-TC; 71046-TC-FY; 71111-TC-FY; 72125-TC; 73030-TC-LT-FY; 73090-TC-RT-FY; 73110-TC-LT-FY; 73110-TC-RT-FY; 73130-TC-LT-FY; 73130-TC-RT-FY; 74176-TC; 80048; 81003; 84703; 85025; 85610; 86803; 86850; 86900; 86901; 87389; 99285-25; J0131